=== PATIENT | male | born 1980 | race Hispanic/Latino ===

== ENCOUNTER 2018-04-03 21:00 | Emergency (ER) | payer MEDICAID, OTHER ==
[2018-04-03 21:26] VITALS: PULSE 77; RESP 16; O2SAT 99
[2018-04-03] MEDS ORDERED: Amoxicillin-Clav 875-125 mg Tab PO STA (21:48)
--- NOTE | 2018-04-03 21:50 | ED PDOC ---
HPI: CCC, URI, Sore Throat Time Seen by Provider: 04/03/18 21:24 Chief Complaint (Nursing): ENT Problem Chief Complaint (Provider): left ear pain, congestion History Per: Patient Additional Complaint(s): 38-year-old male presents with pain and decreased hearing to left ear that started 2 hours ago. Patient states yesterday he started to have nasal and sinus congestion. He denies fever or chills, denies any dizziness. Patient did not take medication for pain relief since onset of ear pain. PMD: in [facility] Past Medical History Reviewed: Historical Data, Nursing Documentation, Vital Signs Vital Signs: Last Vital Signs Temp 98.6 F 04/03/18 21:24 Pulse 77 04/03/18 21:24 Resp 16 04/03/18 21:24 BP 171/109 H 04/03/18 21:24 Pulse Ox 99 04/03/18 21:53 - Medical History PMH: No Chronic Diseases - Surgical History Surgical History: No Surg Hx - Family History Family History: States: No Known Family Hx - Living Arrangements Living Arrangements: With Friends/Others - Social History Current smoker - smoking cessation education provided: No Alcohol: None Drugs: Denies - Home Medications Home Medications: Ambulatory Orders Medication Instructions Recorded Diphenhydramine Hydrochlorid 50 mg PO Q6 PRN #20 cap 11/09/14 [Benadryl] Famotidine [Pepcid] 20 mg PO BID #20 tab 11/09/14 Prednisone 20 mg PO DAILY #18 tab 11/09/14 Amoxicillin/Clavulanate [Augmentin 1 tab PO BID #14 tab 04/03/18 875 MG-125 MG] Ibuprofen [Motrin Tab] 800 mg PO Q8 PRN #20 tab 04/03/18 - Allergies Allergies/Adverse Reactions: Allergies Allergy/AdvReac Type Severity Reaction Status Date / Time No Known Allergies Allergy Unverified 11/09/14 21:01 Review of Systems ROS Statement: Except As Marked, All Systems Reviewed And Found Negative Constitutional: Negative for: Fever, Chills ENT: Positive for: Ear Pain (left), Nose Congestion. Negative for: Throat Pain , Throat Swelling Cardiovascular: Negative for: Chest Pain Respiratory: Negative for: Cough Gastrointestinal: Negative for: Nausea, Vomiting Neurological: Negative for: Headache, Dizziness Physical Exam - Reviewed Nursing Documentation Reviewed: Yes Vital Signs Reviewed: Yes - Physical Exam Appears: Positive for: Well, Non-toxic, No Acute Distress Head Exam: Positive for: ATRAUMATIC Skin: Positive for: Normal Color. Negative for: Rash Eye Exam: Positive for: Normal appearance, EOMI, PERRL ENT: Positive for: Nasal Congestion, Other (Right ear within normal limits, left ear demonstrates bulging tympanic membrane with erythema and obscured landmarks, no perforation or rupture, canal is erythematous with no edema or exudate). Negative for: Pharyngeal Erythema, Tonsillar Exudate, Tonsillar Swelling Neck: Positive for: Normal Cardiovascular/Chest: Positive for: Regular Rate, Rhythm Respiratory: Positive for: Normal Breath Sounds Extremity: Positive for: Normal ROM Neurologic/Psych: Positive for: Alert, Oriented - ECG O2 Sat by Pulse Oximetry: 99 Pulse Ox Interpretation: Normal Medical Decision Making Medical Decision Making: Impression: Left otitis media Plan: PO motrin PO augmentin Patient given prescription for Motrin and Augmentin. He was referred to ear, nose and throat specialist acquisitions analyst for follow up. Disposition - Clinical Impression Clinical Impression: Otitis media - Patient ED Disposition Is Patient to be Admitted: No Counseled Patient/Family Regarding: Diagnosis, Need For Followup, Rx Given - Disposition Referrals: Julio Babcock MD [Staff Provider] - Disposition: Routine/Home Disposition Time: 21:52 Condition: STABLE Additional Instructions: Take prescription meds as directed. Take [id number] Sudafed for congestion as needed. Follow up with primary doctor or ear, nose and throat specialist for any persistent symptoms. Prescriptions: Amoxicillin/Clavulanate [Augmentin 875 MG-125 MG] 1 tab PO BID #14 tab Ibuprofen [Motrin Tab] 800 mg PO Q8 PRN #20 tab PRN Reason: Pain, Moderate (4-7) Instructions: Ear Infections (Otitis Media) Forms: [employer] ([place])
[2018-04-03] MEDS ORDERED: Amoxicillin-Clav 875-125 mg Tab PO ONE (22:05)
[2018-04-03 22:37] VITALS: BP 149/88; TEMP 98
== END 2018-04-03 22:40 | disposition home or self-care (01) ==
LOC: H.ER 21:00
DX: H66.92 Otitis media, unspecified, left ear (principal)